=== PATIENT | male | born 1995 | race Caucasian/White ===

== ENCOUNTER 2020-05-12 01:33 | Emergency (ER) | payer SELFPAY ==
[~2020-05-12] VITALS: Ht 172.7 cm; Wt 100.0 kg
[2020-05-12 01:36] VITALS: BP 122/71
[2020-05-12] MEDS ORDERED: ACETAMINOPHEN 325MG TABLET PO ONE (02:15)
[2020-05-12] MEDS ORDERED: BACITRACIN ZINC OINT UDPKT TOP ONE (03:00)
[2020-05-12] MEDS ORDERED: TETANUS, DIPHTHERIA, PERTUSSIS VAC/PF 0.5ML (>7YR OLD) IM ONE (03:00)
== END 2020-05-12 03:55 | disposition home or self-care (01) ==
LOC: ER 01:57
DX: S01.81XA Laceration without foreign body of other part of head, initial encounter (principal); V47.5XXA Car driver injured in collision with fixed or stationary object in traffic accident, initial encounter; Y93.84 Activity, sleeping; Y92.488 Other paved roadways as the place of occurrence of the external cause; Z23 Encounter for immunization
CPT/HCPCS: 90471; 90715; 99284

== ENCOUNTER 2022-03-25 16:00 | Emergency (ER) | payer MEDICAID ==
[~2022-03-25] VITALS: Ht 172.7 cm; Wt 95.0 kg
[2022-03-25 21:08] LABS: BASOPHILS % 0.3 % (0.0-2.0); EOSINOPHILS % 1.5 % (0.0-5.0); HEMATOCRIT. 46.1 % (42.0-52.0); HEMOGLOBIN. 15.3 g/dL (14.0-18.0); MEAN CORPUSCULAR HEMOGLOBIN 28.9 pg (28.0-32.0); MEAN CORPUSCULAR VOLUME 87.3 fL (80.0-94.0); MEAN PLATELET VOLUME 8.7 fl (7.4-10.4); MONOCYTES % 6.5 % (2.0-8.0); NEUTROPHILS % 63.7 % (40.0-76.0); PLATELET 261 x1000/uL (130-400); RED BLOOD CELL COUNT 5.28 mill/uL (4.7-6.1); RED CELL DISTRIBUTION WIDTH 13.9 % (11.6-14.6)
[2022-03-25 21:17] LABS: CHLORIDE 107 mEq/L (98-107)
[2022-03-25 22:20] VITALS: BP 129/94
[2022-03-25] MEDS ORDERED: KETOROLAC 15MG/ML VIAL IM ONE (22:30)
[2022-03-25] MEDS ORDERED: CYCLOBENZAPRINE 10MG TABLET PO ONE (22:30)
[2022-03-25] MEDS ORDERED: IBUP-2028 MT (23:26)
[2022-03-25] MEDS ORDERED: CYCL10TA21 MT (23:26)
== END 2022-03-25 23:36 | disposition home or self-care (01) ==
LOC: ER 16:00
DX: R07.89 Other chest pain (principal); R03.0 Elevated blood-pressure reading, without diagnosis of hypertension
CPT/HCPCS: 36415; 71045; 80053; 84484; 85025; 93005; 96372; 99285; J1885